=== PATIENT | female | born 1965 | race Caucasian/White ===

== ENCOUNTER 2022-11-15 14:52 | Emergency (ER) | payer BC, SELFPAY ==
[2022-11-15] VITALS (26 sets, daily range): BP systolic 146–199; BP diastolic 72–101; PULSE 80–99; RESP 7–21; TEMP 36.3; O2SAT 95–100
--- NOTE | ~2022-11-15 | XR_ITS ---
EXAMINATION: XR chest 2V DATE: 11/15/2022 15:25 INDICATION: Chest pain. TECHNIQUE: Frontal and lateral views of the chest were obtained. COMPARISON: None. FINDINGS: The chest demonstrates clear lungs without pneumonia, pleural effusion, or pneumothorax. Th e heart size is normal. IMPRESSION: 1. No acute cardiopulmonary disease. Reviewed, dictated and finalized at location A.
--- NOTE | 2022-11-15 14:54 | ECG_ITS ---
Measurements Intervals [place] Rate: 94 P: 14 WI: 209 QRS: -22 QRSD: 64 T: 11 QT: 342 QTc: 428 Interpretive Statements SINUS RHYTHM DELAYED PRECORDIAL R/S TRANSITION LOW QRS VOLTAGE IN PRECORDIAL LEADS BORDERLINE ECG NO PREVIOUS ECG AVAILABLE FOR COMPARISON Electronically Signed On 11-15-2022 15:11:29 CDT by Madhu Yanez D.O.
[2022-11-15 15:21] LABS: Basophils Percent Auto 0.6 % (0.2-1.2); Eosinophils Absolute Auto 0.1 K/mm3 (0-0.3); Eosinophils Percent Auto 2.6 % (0-4.4); Hematocrit 39.6 % (37.0-47.0); Immature Granulocyte Absolute 0.01 K/mm3 (0.00-0.031); Immature Granulocyte Percent A 0.2 % (0-0.5); Lymphocytes Absolute Auto 1.28 K/mm3 (0.9-3.2); Lymphocytes Percent Auto 25.7 % (18.3-44.2); Mean Corpuscular HGB Conc 32.8 g/dl (32-36); Mean Corpuscular Hemoglobin 29.5 pg (26-34); Mean Platelet Volume 9.5 fl (7.4-10.4); Monocytes Absolute Auto 0.5 K/mm3 (0.1-0.6); Neutrophils Percent Auto 60.9 % (45.5-73.1); Platelet Count Result 211 k/mm3 (150-375); Red Cell Distribution Width 13.1 % (11.5-14.5)
[2022-11-15 15:31] LABS: Prothrombin Time 13.7 Seconds (11.1-14.7)
[2022-11-15 15:33] LABS: Alanine Aminotransferase 20 U/L (6-35); Albumin Level 4.7 g/dL (3.5-5.1); Alkaline Phosphatase 55 U/L (38-126); Anion Gap 7 mmol/L (8-16); Aspartate Amino Transferase 24 U/L (14-36); Bilirubin,Total 0.4 mg/dL (0.2-1.3); Blood Urea Nitrogen 13 mg/dL (7-17); Calcium 9.6 mg/dL (8.4-10.2); Carbon Dioxide 30 mmol/L (22-30); Chloride 104 mmol/L (98-107); Estimated CRCL calculation 91 ml/min; Estimated Glomerular Filt Rate > 60; Glucose 111 mg/dL (65-110); Lipase 228 U/L (23-300); Sodium 141 mmol/L (137-145)
[2022-11-15] MEDS: ASPIRIN 81 MG CHEWABLE TABLET 324 MG PO (15:36)
[2022-11-15 15:45] LABS: Troponin I < 0.012 ng/mL (0.000-0.034)
--- NOTE | 2022-11-15 16:30 | ED.ARRPALP ---
HPI - Arrhythmia/Palpitations General Chief Complaint: Arrhythmia/Palpitations Stated Complaint: my heart doesn't feel right Time Seen by Provider: 11/15/22 15:29 History of Present Illness HPI narrative: Patient is a 57-year-old female with a history of hypertension, hypothyroidism presenting with palpitations. Patient states that she has had palpitations in the past. States that it normally only lasts for a few minutes. States that over the last couple of days she has had increasingly frequent palpitations. States that she had an episode of some chest tightness earlier with them so she became concerned. She denies chest pain or lightheadedness. Denies leg swelling. States that she often has exertional dyspnea that is maybe been getting worse. Denies fevers, headache, cough, abdominal pain, nausea or vomiting, diarrhea, dysuria, flank or back pain. Related Data Allergies Allergy/AdvReac Type Severity Reaction Status Date / Time pseudoephedrine Allergy Unknown Unknown Verified 11/15/22 14:53 NKFA Allergy Unknown Unknown Uncoded 11/15/22 14:53 SUDIFED Allergy Unknown Unknown Uncoded 11/15/22 14:53 Review of Systems Review of Systems: All systems reviewed & are unremarkable except as noted in HPI and below Exam Narrative: GENERAL: Well-appearing, well-nourished, and in no acute distress. Pleasant and cooperative HEAD: Normocephalic, atraumatic. EYES: PERRLA and EOMI. ENT: Nares clear, no rhinorrhea or epistaxis. Mucous membranes moist. NECK: Supple. CHEST: Clear to auscultation. No respiratory distress. HEART: Regular rate and rhythm. No murmur heard. Normal peripheral pulses. ABDOMEN: Soft, nontender, nondistended EXTREMITIES: Normal range of motion. No edema. SKIN: Warm, dry, no rash. NEURO: No focal deficits. Alert and oriented x3. PSYCH: Normal mood and affect. Course Vital Signs Vital signs: Vital Signs Temperature 97.4 F L 11/15/22 15:16 Pulse Rate 99 11/15/22 15:16 Respiratory Rate 20 11/15/22 15:16 Blood Pressure 199/101 H 11/15/22 15:16 Pulse Oximetry 100 11/15/22 15:16 Oxygen Delivery Room Air 11/15/22 15:16 Temperature 97.4 F L 07/19/23 15:16 Pulse Rate 88 11/15/22 20:31 Respiratory Rate 15 11/15/22 20:31 Blood Pressure 162/90 H 11/15/22 20:31 Pulse Oximetry 100 11/15/22 20:31 Oxygen Delivery Room Air 11/15/22 15:16 MDM - Arrhythmia/Palpitations MDM Narrative Medical decision making narrative: Patient is a 57-year-old female presenting with palpitations and an episode of chest tightness. Patient is hypertensive, otherwise vitals are within normal limits. EKG per my interpretation shows normal sinus rhythm, slightly prolonged NE, left axis deviation, no ST elevations or depressions. No priors for comparison. Blood work is unremarkable. Normal electrolytes. Troponins are negative x2. Chest x-ray shows no acute abnormalities. On reevaluation, the patient states that she feels improved. Discussed the reassuring work-up. Advised that she follow-up with her PCP. Appropriate return precautions given. Patient voiced understanding and is agreeable with plan. Discharged in stable condition. Differential Diagnosis Differential diagnosis: Likely palpitations, anxiety, sinus tachycardia and other (Chest pain, anxiety) Medical Records Attestation: I reviewed the patient's medical records. Lab Data Attestation: I reviewed the patient's lab results. 11/15/22 15:07 11/15/22 15:07 Labs: Lab Results 11/15/22 11/15/22 11/15/22 Range/Units 15:04 15:07 16:41 WBC 5.0 (4.5-10.0) K/mm3 RBC 4.40 (4.2-5.4) M/mm3 Hgb 13.0 (12.0-15.0) g/dL Hct 39.6 (37.0-47.0) % MCV 90.0 (80-100) fl MCH 29.5 (26-34) pg MCHC 32.8 (32-36) g/dl RDW 13.1 (11.5-14.5) % Plt Count 211 (150-375) k/mm3 MPV 9.5 (7.4-10.4) fl Immature Gran % (Auto) 0.2 (0-0.5) % Neut % (Auto) 60.9 (45.5-73.1) % Ly
[2022-11-15] MEDS: LACTATED RINGERS 1,000 ML 999 ML IV CONT (16:49)
[2022-11-15 16:55] LABS: NT Pro B Type Natriuretic Pept 60 pg/mL (19.9-100)
[2022-11-15 18:38] LABS: Troponin I < 0.012 ng/mL (0.000-0.034)
== END 2022-11-15 20:32 | disposition home or self-care (01) ==
PROVIDERS: Emergency Medicine; Emergency Provider Emergency Medicine; PCP Nurse Practitioner Family
DX: R00.2 Palpitations (principal); R07.89 Other chest pain; F41.9 Anxiety disorder, unspecified; I10 Essential (primary) hypertension; E03.9 Hypothyroidism, unspecified
CPT/HCPCS: 36415; 71046; 80053; 83690; 83735; 83880; 84443; 84484; 85025; 85610; 85730; 93005; 96360; 99284; A9270; J7120